=== PATIENT | female | born 1995 | race American Indian/Alaskan Native ===

== ENCOUNTER 2018-08-11 03:51 | Emergency (ER) | payer MEDICAID ==
[2018-08-11] MEDS ORDERED: BENADRYL IM ONE (05:32)
[2018-08-11] MEDS ORDERED: DECADRON IM ONE (05:32)
--- NOTE | 2018-08-11 05:36 | Emergency Department Report ---
ED Rash HPI - HPI Chief Complaint: Allergic Reaction Stated Complaint: ALLERGIC REACTION Time Seen by Provider: 08/11/18 05:31 Duration: Today Location: Neck, Chest, Back, Lower Extremities Rash Symptoms: Yes Itching, Yes Wheezing/Dyspnea, No Facial Swelling, No Tongue/ Oral Swelling, No Breathing Difficulties, No Choking Sensation, No Peeling, No Blistering, No Fever, No Lightheaded, No Malaise, No Myalgias Severity: mild Other History: 23-year-old 2 para 1 that is 5 months comes in she has broke out in a rash. Patient reports that she had eaten tacos when she eats all the time and had an almond Wanda about 9:30. Patient started itching and having whelps on her stomach her legs or arms abdomen. Patient reports shortness of breath and was having trouble swallowing. Patient has not taken anything to relieve her discomfort. She is followed by [facility] and is taking vitamins. No known drug allergies. ED Review of Systems ROS: Stated complaint: ALLERGIC REACTION Other details as noted in HPI Skin: rash ED Past Medical Hx - Past Medical History Previous Medical History?: No - Surgical History Past Surgical History?: No - Social History Smoking Status: Never Smoker Substance Use Type: None - Medications Home Medications: Home Medications Medication Instructions Recorded Confirmed Last Taken Type cephALEXin [Keflex] 500 mg PO Q6HR #20 capsule 07/09/18 Unknown Rx diphenhydrAMINE [Benadryl CAP] 25 mg PO Q6HR PRN #20 capsule 08/11/18 Unknown Rx Rash Exam - Exam General: Vital signs noted. No distress. Alert and acting appropriately. HEENT: No Periorbital Edema, No Conjuctival Injection, No Chemosis, No Perioral Edema, No Tongue Edema, No Uvular Edema, No Compromised Airway, No Drooling Lungs: Yes Good Air Exchange (Normal Breath Sounds), No Wheezes, No Ronchi, No Stridor, No Cough, No Labored Respirations, No Retractions, No Use of Accessory Muscles, No Other Abnormal Lung Sounds Heart: Yes Regular, No Murmur Skin: Yes Urticarial Rash Other: Positive: Abdomen Normal, Neurologic Normal, Musculoskeletal Normal ED Course Vital Signs 08/11/18 04:26 Temperature 98.4 F Pulse Rate 79 Respiratory 18 Rate Blood Pressure 107/52 O2 Sat by Pulse 99 Oximetry - Reevaluation(s) Reevaluation #1: 08/11/18 19:07 Reassessed by this provider patient required a nebulizer treatment patient reports she feels much better. ED Medical Decision Making - Medical Decision Making Patient has been evaluated by this provider fast track. Discussed with Dr. Hudson patient can have Decadron 8 mg grams IM and Benadryl 25 mg IM. Discussed the patient she needs to inform her OB provider and avoid eating almond Wanda. Critical care attestation.: If time is entered above; I have spent that time in minutes in the direct care of this critically ill patient, excluding procedure time. ED Disposition Clinical Impression: Urticaria Disposition: - TO HOME OR SELFCARE Is pt being admited?: No Does the pt Need Aspirin: No Condition: Stable Instructions: Urticaria (ED), Food Allergy (ED) Additional Instructions: Please take medication as prescribed. It is very important for you to follow up with your OB provider. They may want to do allergy testing if this becomes a reoccurrence. Prescriptions: diphenhydrAMINE [Benadryl CAP] 25 mg PO Q6HR PRN #20 capsule PRN Reason: Allergic Reaction Referrals: PRIMARY CARE, [Primary Care Provider] - 3-5 Days [facility] [Provider Group] - 3-5 Days
[2018-08-11] MEDS ORDERED: PROVENTIL IH ONE (06:25)
[2018-08-11 07:54] VITALS: BP 93/52
== END 2018-08-11 07:53 | disposition home or self-care (01) ==
LOC: ED 03:51
DX: O26.899 Other specified pregnancy related conditions, unspecified trimester (principal); L50.9 Urticaria, unspecified; Z3A.00 Weeks of gestation of pregnancy not specified
CPT/HCPCS: 94640; 96372; 99283; J1100; J1200

== ENCOUNTER 2018-11-12 21:54 | Emergency (ER) | payer MEDICAID, OTHER ==
[2018-11-12 23:44] LABS: Basophils # (Auto) 0.1 K/mm3 (0.0-0.1); Basophils % (Auto) 0.4 % (0.0-1.8); Eosinophils % (Auto) 0.2 % (0.0-4.3); Hematocrit 31.7 % (30.3-42.9); Hemoglobin 10.5 gm/dl (10.1-14.3); Lymphocytes # (Auto) 1.6 K/mm3 (1.2-5.4); Lymphocytes % (Auto) 13.8 % (13.4-35.0); Mean Corpuscular HGB Conc 33 % (30-34); Mean Corpuscular Volume 88 fl (79-97); Monocytes # (Auto) 0.7 K/mm3 (0.0-0.8); Monocytes % (Auto) 6.3 % (0.0-7.3); Platelet Count 217 K/mm3 (140-440); Red Cell Distribution Width 13.8 % (13.2-15.2)
[2018-11-12 23:57] LABS: Alanine Aminotransferase 42 units/L (7-56); Albumin 3.7 g/dL (3.9-5); BUN/Creatinine Ratio 18; Blood Urea Nitrogen 7 mg/dL (7-17); Calcium 8.7 mg/dL (8.4-10.2); Hemolysis Index 8
--- NOTE | 2018-11-13 01:04 | Emergency Department Report ---
ED General Adult HPI - General Chief complaint: High BP Stated complaint: HIGH BP Time Seen by Provider: 11/13/18 00:52 Source: patient Mode of arrival: Ambulatory Limitations: No Limitations - History of Present Illness Initial comments: Patient is a 23-year-old female presents emergency room with complaints of high blood pressure. Patient states in triage her blood pressure was normal. Patient states when checking her blood pressure at home and it was at 130/60. Patient is at 33 weeks. Patient has OB care with a local ELECTRICAL ENGINEERING TECHNICIAN. Patient denies chest pain shortness of breath. Patient denies headache. Patient denies physical complaints. Patient denies abdominal pain. Patient denies fever and chills. Patient denies vaginal bleeding. Patient denies vaginal discharge. -: Sudden Consistency: now resolved Associated Symptoms: denies other symptoms. denies: confusion, chest pain, cough, diaphoresis, fever/chills, headaches, loss of appetite, malaise, jin sea/vomiting, rash, seizure, shortness of breath, syncope, weakness Treatments Prior to Arrival: none - Related Data Previous Rx's Medication Instructions Recorded Last Taken Type cephALEXin [Keflex] 500 mg PO Q6HR #20 capsule 07/09/18 Unknown Rx diphenhydrAMINE [Benadryl CAP] 25 mg PO Q6HR PRN #20 capsule 08/11/18 Unknown Rx Allergies Allergy/AdvReac Type Severity Reaction Status Date / Time No Known Allergies Allergy Unverified 07/09/18 13:49 ED Review of Systems ROS: Stated complaint: HIGH BP Other details as noted in HPI Constitutional: denies: chills, fever Eyes: denies: eye pain, eye discharge, vision change ENT: denies: ear pain, throat pain Respiratory: denies: cough, shortness of breath, wheezing Cardiovascular: denies: chest pain, palpitations Endocrine: no symptoms reported Gastrointestinal: denies: abdominal pain, nausea, diarrhea Genitourinary: denies: urgency, dysuria, discharge Musculoskeletal: denies: back pain, joint swelling, arthralgia Skin: denies: rash, lesions Neurological: denies: headache, weakness, paresthesias Psychiatric: denies: anxiety, depression Hematological/Lymphatic: denies: easy bleeding, easy bruising ED Past Medical Hx - Past Medical History Previous Medical History?: Yes Additional medical history: induced for possible preeclampsia with last - Surgical History Past Surgical History?: Yes Additional Surgical History: - Family History Family history: no significant - Social History Smoking Status: Never Smoker Substance Use Type: None - Medications Home Medications: Home Medications Medication Instructions Recorded Confirmed Last Taken Type cephALEXin [Keflex] 500 mg PO Q6HR #20 capsule 07/09/18 Unknown Rx diphenhydrAMINE [Benadryl CAP] 25 mg PO Q6HR PRN #20 capsule 08/11/18 Unknown Rx ED Physical Exam - General Limitations: No Limitations General appearance: alert, in no apparent distress - Head Head exam: Present: atraumatic, normocephalic - Eye Eye exam: Present: normal appearance - ENT ENT exam: Present: mucous membranes moist - Neck Neck exam: Present: normal inspection - Respiratory Respiratory exam: Present: normal lung sounds bilaterally. Absent: respiratory distress - Cardiovascular Cardiovascular Exam: Present: regular rate, normal rhythm. Absent: systolic murmur, diastolic murmur, rubs, gallop - GI/Abdominal GI/Abdominal exam: Present: soft, distended (gravid abdomen noted), normal bowel sounds. Absent: tenderness, guarding, rebound, rigid - Extremities Exam Extremities exam: Present: normal inspection - Back Exam Back exam: Present: normal inspection - Neurological Exam Neurological exam: Present: alert, oriented X3 - Psychiatric Psychiatric exam: Present: normal affect, normal mood - Skin Skin exam: Present: warm, dry, intact, normal color. Absent: rash ED Course Vital Signs 11/12/18 11/12/18 11/13/18 22:29 22:48 01:10 Temperature 98.8 F 98.8 F 98.5 F Pulse Rate 112 H 112 H 86 Respiratory 20 20 18 Rate Blood Pressure 111/66 111/66 Blood Pressure 98/58 [Left] O2 Sat by Pulse 98 98 99 Oximetry - Reevaluation(s) Reevaluation #1: Blood pressure recheck is 99/58. Patient has no signs of high blood pressure. Patient is stable for discharge. Discussed all results with patient. Patient given discharge instructions. Patient to return to ER structures. 11/13/18 01:02 ED Medical Decision Making - Lab Data Result diagrams: 11/12/18 23:20 11/12/18 23:20 - Medical Decision Making She is a 23-year-old female that presents emergency room with complaints of high blood pressure. Labs unremarkable. Blood pressure unremarkable in ER. Patient is stable for discharge. Patient will be discharged home. Patient instructed to follow up with her primary care and ELECTRICAL ENGINEERING TECHNICIAN. - Differential Diagnosis high blood pressure. Incorrect reading. Elevated blood pressure Critical care attestation.: If time is entered above; I have spent that time in minutes in the direct care of this critically ill patient, excluding procedure time. ED Disposition Clinical Impression: Elevated blood pressure reading, Hypokalemia Disposition: TO HOME OR SELFCARE Is pt being admited?: No Does the pt Need Aspirin: No Condition: Stable Instructions: Heart Healthy Diet (ED), How to Take a Blood Pressure (ED), DASH Eating Plan (ED) Additional Instructions: Patient to follow-up with primary care in 2-3 days. Patient to follow-up with ELECTRICAL ENGINEERING TECHNICIAN in 2-3 days. Patient to return to ER if condition worsens. Patient to increase water. Patient to monitor blood pressure at home. Patient to continue vitamin. Referrals: PRIMARY CAREMD [Primary Care Provider] - 2-3 Days Time of Disposition: 01:04
[2018-11-13 01:18] VITALS: BP 98/58
== END 2018-11-13 01:18 | disposition home or self-care (01) ==
LOC: ED 21:54
DX: O26.893 Other specified pregnancy related conditions, third trimester (principal); R03.0 Elevated blood-pressure reading, without diagnosis of hypertension; E87.6 Hypokalemia; Z3A.33 33 weeks gestation of pregnancy
CPT/HCPCS: 36415; 80053; 85025; 99283

== ENCOUNTER 2018-12-11 01:35 | Inpatient (IN) | payer MEDICAID ==
[2018-12-11] MEDS ORDERED: MINERAL OIL PO PRN (02:30)
[2018-12-11] MEDS ORDERED: BRETHINE SUB-Q PRN (02:30)
[2018-12-11] MEDS ORDERED: BRETHINE IVP PRN (02:30)
[2018-12-11] MEDS ORDERED: XYLOCAINE 2% INFILTRATI ONE (02:30)
[2018-12-11] MEDS ORDERED: AMPICILLIN/NS 2 GM/100 ML 2 GM/100 ML BAG IV ONE (02:30)
[2018-12-11] MEDS ORDERED: SUBLIMAZE IV PRN (02:30)
[2018-12-11] MEDS ORDERED: PITOCin/NS 20 UNIT/1000ML DRIP 20 UNITS/1,000 ML BAG IV SCH (03:00)
[2018-12-11] MEDS ORDERED: LACTATED RINGERS 1,000 ML IV SCH (03:00)
[2018-12-11 03:02] LABS: Hematocrit 32.6 % (30.3-42.9); Hemoglobin 10.4 gm/dl (10.1-14.3); Mean Corpuscular HGB Conc 32 % (30-34); Mean Corpuscular Volume 89 fl (79-97); Platelet Count 189 K/mm3 (140-440); Red Blood Count 3.66 M/mm3 (3.65-5.03); Red Cell Distribution Width 14.9 % (13.2-15.2)
[2018-12-11] MEDS ORDERED: NARCAN 2 MG/2 ML IV PRN (05:16)
[2018-12-11] MEDS ORDERED: SENSORCAINE/DEXTR 0.75-8.25% INFILTRATI ONE (05:22)
[2018-12-11] MEDS ORDERED: fentaNYL-BUPIV 2 MCG/ML-0.125% 200 MCG/100 ML BAG EPIDURAL SCH (06:00)
[2018-12-11] MEDS ORDERED: AMPICILLIN/NS 1 GM/50 ML 1 GM/50 ML BAG IV SCH (06:31)
[2018-12-11] MEDS ORDERED: PITOCin/NS 30 UNIT/500ML 30 UNITS/500 ML BAG IV SCH (08:00)
--- NOTE | 2018-12-11 08:20 | History and Physical Report ---
History of Present Illness Date of examination: 12/11/18 Date of admission: 12/11/18 03:04 Chief complaint: contractions History of present illness: 23y/o @ 37+0 weeks presents in active labor with advanced cervical dilation. The patient is late presentation to care and was non-compliant with her visits. Her is also complicated STD exposure. 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 Social history: single - Obstetrical History Expected Date of Delivery: 01/01/19 Actual Gestation: 37 Week(s) 1 Day(s) : 2 Para: 1 Hx # Term Pregnancies: 1 Number of Pregnancies: 0 Spontaneous Abortions: 0 Induced : 0 Number of Living Children: 1 Medications and Allergies Allergies Allergy/AdvReac Type Severity Reaction Status Date / Time No Known Allergies Allergy Verified 12/11/18 01:57 Home Medications Medication Instructions Recorded Confirmed Last Taken Type Ferrous Sulfate [Iron] 1 tab PO BID 12/11/18 12/11/18 12/10/18 History Vit,Calc76/Iron/Folic 1 tab PO DAILY 12/11/18 12/11/18 12/10/18 History [Pnv 29-1 Tablet] HYDROcodone/APAP 5-325 [Whitman 1 each PO Q6HR PRN #20 tablet 12/12/18 Unknown Rx 5/325] Ibuprofen [Motrin] 800 mg PO Q8HR PRN #60 tablet 12/12/18 Unknown Rx Active Meds: Active Medications Ephedrine Sulfate (Ephedrine Sulfate) 10 mg IV Q2M PRN PRN Reason: Hypotension Last Admin: 12/11/18 05:46 Dose: 10 mg Documented by: Ephedrine Sulfate (Ephedrine Sulfate) 10 mg IV Q2M PRN PRN Reason: Hypotension Fentanyl (Sublimaze) 100 mcg IV Q2H PRN PRN Reason: Labor Pain Ampicillin Sodium (Ampicillin/Ns 1 Gm/50 Ml) 1 gm in 50 mls @ 100 mls/hr IV Q4HR AISHA; Protocol Last Admin: 12/11/18 07:33 Dose: 100 mls/hr Documented by: Lactated Ringer's (Lactated Ringers) 1,000 mls @ 125 mls/hr IV DIRECT AISHA Last Admin: 12/11/18 03:30 Dose: 125 mls/hr Documented by: Oxytocin/Sodium Chloride (Pitocin/Ns 20 Unit/1000ml Drip) 20 units in 1,000 mls @ 125 mls/hr IV DIRECT AISHA Fentanyl/Bupivacaine/Sodium Chlor (Fentanyl-Bupiv 2 Mcg/Ml-0.125%) 200 mcg in 100 mls @ 12 mls/hr EPIDURAL TITR AISHA; Protocol Last Admin: 12/11/18 06:05 Dose: 12 mls/hr Documented by: Oxytocin/Sodium Chloride (Pitocin/Ns 30 Unit/500ml) 30 units in 500 mls @ 1 mls/hr IV TITR AISHA; Protocol Mineral Oil (Mineral Oil) 30 ml PO QHS PRN PRN Reason: Constipation Naloxone HCl (Narcan 2 Mg/2 Ml) 0.2 mg IV Q5M PRN PRN Reason: Respiratory sedation Terbutaline Sulfate (Brethine) 0.25 mg SUB-Q ONCE PRN PRN Reason: Hyperstimulation/Hypertonicity Terbutaline Sulfate (Brethine) 0.25 mg IVP ONCE PRN PRN Reason: Hyperstimulation/Hypertonicity Review of Systems All systems: negative Genitourinary: contractions - Vital Signs Vital signs: Vital Signs Pulse BP 100 H 102/58 12/11/18 01:46 12/11/18 01:46 Temp Pulse Resp BP Pulse Ox 97.8 F 88 16 91/50 97 12/11/18 01:47 12/11/18 08:11 12/11/18 01:47 12/11/18 08:11 12/11/18 07:03 - Physical Exam Breasts: Positive: deferred Cardiovascular: Regular rate Lungs: Positive: Clear to auscultation Abdomen: Positive: normal appearance Results Result Diagrams: 12/11/18 22:28 All other labs normal. Assessment and Plan - Patient Problems (1) Insufficient care Current Visit: Yes Status: Acute Plan to address problem: patient doing well discharge tomorrow (2) Active labor Current Visit: Yes Status: Acute
[2018-12-11] MEDS ORDERED: ZOFRAN IV PRN ×2 (08:43→11:28)
[2018-12-11] MEDS ORDERED: PHENERGAN PO PRN (11:28)
[2018-12-11] MEDS ORDERED: TYLENOL PO PRN (11:28)
[2018-12-11] MEDS ORDERED: LANSINOH TP PRN (11:28)
[2018-12-11] MEDS ORDERED: TUCKS PAD TP PRN (11:28)
[2018-12-11] MEDS ORDERED: DULCOLAX PR PRN (11:28)
[2018-12-11] MEDS ORDERED: PHENERGAN PR PRN (11:28)
[2018-12-11] MEDS ORDERED: NORCO 5/325 PO PRN (11:28)
[2018-12-11] MEDS ORDERED: BENADRYL PO PRN (11:28)
[2018-12-11] MEDS ORDERED: MILK OF MAGNESIA PO PRN (11:28)
--- NOTE | 2018-12-11 11:28 | Procedure Note ---
OB Delivery Note - Delivery Date of Delivery: 12/11/18 Surgeon: KAREEN FRANCIS Estimated blood loss: 200cc - Vaginal Delivery presentation: vertex Delivery position: OA Intrapartum events: none Delivery induction: AROM Delivery augmentation: pitocin Delivery monitor: external FHT Route of delivery: Delivery placenta: spontaneous Delivery cord: 3 umbilical vessels Episiotomy: none Delivery laceration: 2nd degree Delivery repair: vicryl Anesthesia: epidural Delivery comments: Patient progressed to C/C/+1 and pushed to deliver a liveborn female with apgars of 8/9 and weight of 6lbs 0oz. After delivery of the head the shoulders delivered without difficulty. The infant was bulb suction and the cord clamped and cut. The infant was placed on the patient's chest. The placenta delivered spontaneously intact with 3VC. The patient sustained a midline 2nd degree laceration repaired with 2-0 vicryl. EBL 200ml - A at 1 minute: 8 at 5 minutes: 9 Infant Gender: Female (weight 6lbs 0oz.)
[2018-12-11] MEDS ORDERED: SODIUM CHLORIDE FLUSH SYRINGE 10 ML IV SCH (12:00)
[2018-12-11] MEDS ORDERED: IBUPROFEN PO SCH (12:00)
[2018-12-11 22:52] LABS: Hematocrit 26.4 % (30.3-42.9); Hemoglobin 8.7 gm/dl (10.1-14.3)
[2018-12-12] MEDS: IBUPROFEN PO SCH ×4 (00:07→19:19)
--- NOTE | 2018-12-12 13:12 | Discharge Summary ---
Providers - Providers Date of Admission: 12/11/18 03:04 Date of discharge: 12/13/18 Attending physician: EFRA MENDOZA MD Primary care physician: [facility] Hospitalization Reason for admission: active labor Delivery: Discharge diagnosis: IUP at term delivered Hospital course: Patient admitted in active labor. Had a . uncomplicated Condition at discharge: Good Disposition: DC-01 TO HOME OR SELFCARE - Discharge Diagnoses (1) Insufficient care Status: Acute (2) Active labor Status: Acute Plan - Discharge Medications Prescriptions: HYDROcodone/APAP 5-325 [Erin 5/325] 1 each PO Q6HR PRN #20 tablet PRN Reason: Pain Ibuprofen [Motrin] 800 mg PO Q8HR PRN #60 tablet PRN Reason: Pain, Mild (1-3) - Provider Discharge Summary Activity: no sex for 6 weeks, no heavy lifting 4 weeks, no strenuous exercise Diet: routine Instructions: routine Additional instructions: [] Smoking cessation referral if applicable(refer to patient education folder for contact #) [] Refer to [facility] Booklet Call your doctor immediately for: * Fever > 100.5 * Heavy vaginal bleeding ( >1 pad per hour) * Severe persistent headache * Shortness of breath * Reddened, hot, painful area to leg or breast * schedule visit in 4 weeks - Follow up plan
[2018-12-13] MEDS: IBUPROFEN PO SCH ×2 (00:10→05:36)
[2018-12-13 08:13] VITALS: BP 96/55
== END 2018-12-13 12:40 | disposition home or self-care (01) | DRG 775 ==
LOC: TRG 01:35 → LD 03:04 → OB 13:45
PROVIDERS: ADMIT Obstetrics & Gynecology; ATTEND Obstetrics & Gynecology
PROC: 0KQM0ZZ Repair Perineum Muscle, Open Approach (ICD-10-PCS; principal; 2018-12-11)
PROC: 10907ZC Drainage of Amniotic Fluid, Therapeutic from Products of Conception, Via Natural or Artificial Opening (ICD-10-PCS; 2018-12-11)
PROC: 10E0XZZ Delivery of Products of Conception, External Approach (ICD-10-PCS; 2018-12-11)
PROC: 3E0R3BZ Introduction of Anesthetic Agent into Spinal Canal, Percutaneous Approach (ICD-10-PCS; 2018-12-11)
PROC: 00HU33Z Insertion of Infusion Device into Spinal Canal, Percutaneous Approach (ICD-10-PCS; 2018-12-11)
DX: O70.1 Second degree perineal laceration during delivery (principal); Z37.0 Single live birth; Z3A.37 37 weeks gestation of pregnancy
CPT/HCPCS: 36415; 85014; 85018; 85027; 86592; 86850; 86900; 86901; G0378; J0290; J2405; J2590; J3010; J7120

== ENCOUNTER 2019-01-28 15:00 | Emergency (ER) | payer MEDICAID ==
--- NOTE | 2019-01-28 15:23 | Emergency Department Report ---
Blank Doc - Documentation Documentation: This is a 23-year-old female that presents with acute on chronic intermittent migrane headaches. Denies worst headache. Denies thunderclap headache. Stated is similar headache to previous headaches. This initial assessment/diagnostic orders/clinical plan/treatment(s) is/are subject to change based on patient's health status, clinical progression and re- assessment by fellow clinical providers in the ED. Further treatment and workup at subsequent clinical providers discretion. Patient/guardians urged not to elope from the ED as their condition may be serious if not clinically assessed and managed. Initial orders include: 1- Patient sent to [facility] for further evaluation and treatment
[2019-01-28] MEDS ORDERED: REGLAN PO ONE (17:26)
[2019-01-28] MEDS ORDERED: BENADRYL PO ONE (17:26)
--- NOTE | 2019-01-28 17:44 | Emergency Department Report ---
ED Headache HPI - General Chief Complaint: Headache Stated Complaint: MIGRANES/PAIN Time Seen by Provider: 01/28/19 15:22 - History of Present Illness Initial Comments: Pt is a 23 yo female who presents to the ED with c/o a frontal MORAN that began three days ago. She has associated nausea, one episode of emesis, photophobia, and occasional flashes of blurry vision. no blurry vision currently. She denies any numbness, weakness, speech difficulty or any other sx. She denies ever being diagnosed with migraines. She denies ever having a CT scan of the brain. She states she has been taking tylenol and ibuprofen without much relief. SHe denies any PMHx. She states she only takes vitamins. Allergies/Adverse Reactions: Allergies No Known Allergies Allergy (Verified 12/11/18 01:57) Home Medications: Ambulatory Orders Ferrous Sulfate [Iron 325 MG] 1 tab PO BID 12/11/18 Ibuprofen [Motrin 800 MG tab] 800 mg PO Q8HR PRN #60 tablet 01/28/19 Ondansetron [Zofran Odt] 4 mg PO Q8HR PRN #10 tab.rapdis 01/28/19 ED Review of Systems ROS: Stated complaint: MIGRANES/PAIN Other details as noted in HPI Comment: All other systems reviewed and negative ED Past Medical Hx - Past Medical History Hx Hypertension: Yes (gestational w/first ) Hx Congestive Heart Failure: No Hx Diabetes: No Hx Deep Vein Thrombosis: No Hx Renal Disease: No Hx Sickle Cell Disease: No Hx Seizures: No Hx Asthma: No Hx COPD: No Hx HIV: No Additional medical history: induced for possible preeclampsia with last - Surgical History Past Surgical History?: Yes Additional Surgical History: - Social History Smoking Status: Never Smoker Substance Use Type: None - Medications Home Medications: Home Medications Medication Instructions Recorded Confirmed Last Taken Type Ferrous Sulfate [Iron 325 MG] 1 tab PO BID 12/11/18 12/11/18 12/10/18 History Ibuprofen [Motrin 800 MG tab] 800 mg PO Q8HR PRN #60 tablet 01/28/19 Unknown Rx Ondansetron [Zofran Odt] 4 mg PO Q8HR PRN #10 tab.rapdis 01/28/19 Unknown Rx ED Physical Exam - General Limitations: No Limitations General appearance: alert, in no apparent distress - Head Head exam: Present: atraumatic, normocephalic - Eye Eye exam: Present: normal appearance, PERRL, EOMI - ENT ENT exam: Present: mucous membranes moist - Neck Neck exam: Present: normal inspection. Absent: tenderness, meningismus - Respiratory Respiratory exam: Present: normal lung sounds bilaterally. Absent: respiratory distress, wheezes, rales, rhonchi, stridor, chest wall tenderness, accessory m uscle use, decreased breath sounds, prolonged expiratory - Cardiovascular Cardiovascular Exam: Present: regular rate, normal rhythm, normal heart sounds. Absent: systolic murmur, rubs, gallop - Neurological Exam Neurological exam: Present: alert, oriented X3, CN II-XII intact, normal gait, other (normal finger to nose, normal heel to michelle, normal rapid alternating movements, equal medical assisting instructor strength, 5/5 strength in the BUE/BLE, no focal neuro deficits). Absent: motor sensory deficit - Psychiatric Psychiatric exam: Present: normal affect, normal mood - Skin Skin exam: Present: warm, dry, intact ED Course Vital Signs 01/28/19 01/28/19 01/28/19 15:23 17:50 18:10 Temperature 98 F Pulse Rate 95 H Respiratory 18 18 Rate Blood Pressure 103/53 Blood Pressure [Left] O2 Sat by Pulse 98 Oximetry 01/28/19 18:52 Temperature 97.7 F Pulse Rate 82 Respiratory 15 Rate Blood Pressure Blood Pressure 108/64 [Left] O2 Sat by Pulse 98 Oximetry ED Medical Decision Making - Radiology Data Radiology results: report reviewed PROCEDURE: CT HEAD/BRAIN WO CON TECHNIQUE: Axial helical imaging from the skull base to the vertex. HISTORY: MORAN, blurry vision COMPARISONS: None FINDINGS: There is no evidence of an acute intracranial process, intracranial hemorrhage or mass effect. The ventricles are normal size. The visualized portions of the orbits, paranasal and mastoid sinuses are unremarkable. The bony structures are unremarkable. IMPRESSION: 1. No evidence of an acute intracranial process, intracranial hemorrhage or mass effect. If further imaging is required, MRI brain may be helpful. This document is electronically signed by Lizzie Medina MD., January 28 2019 06:34:08 PM ET - Medical Decision Making Pt is a 23 yo female who presents to the ED with c/o a frontal MORAN that began three days ago. She has associated nausea, one episode of emesis, photophobia, and occasional flashes of blurry vision. no blurry vision currently. She denies any numbness, weakness, speech difficulty or any other sx. She denies ever being diagnosed with migraines. She denies ever having a CT scan of the brain. She states she has been taking tylenol and ibuprofen without much relief. SHe denies any PMHx. She states she only takes vitamins. No neuro deficits. CT of the head is normal. Headache resolved after medications. Advised pt to follow up with PCP and optometry in the next 2-3 days. Follow up with neurology if continue to have headaches for migraine evaluation. Return to the emergency room for any new or worsening symptoms. - Differential Diagnosis migraine, cluster moran, tension morna, tumor, bleed Critical care attestation.: If time is entered above; I have spent that time in minutes in the direct care of this critically ill patient, excluding procedure time. ED Disposition Clinical Impression: Headache Qualifiers: Headache type: unspecified Headache chronicity pattern: acute headache Intractability: not intractable Qualified Code(s): R51 - Headache Disposition: DC-01 TO HOME OR SELFCARE Is pt being admited?: No Does the pt Need Aspirin: No Condition: Stable Instructions: Migraine Headache (ED) Additional Instructions: Follow up with your primary care doctor in the next 2-3 days. Follow up with neurology in the next 2-3 days if continue to have headaches. Follow up with an eye doctor to have your vision checked in the next 2-3 days. Return to the emergency room for any new or worsening symptoms. Prescriptions: Ibuprofen [Motrin 800 MG tab] 800 mg PO Q8HR PRN #60 tablet PRN Reason: Pain, Mild (1-3) Ondansetron [Zofran Odt] 4 mg PO Q8HR PRN #10 tab.rapdis PRN Reason: Nausea And Vomiting Referrals: VALENTINO BERMAN MD [Primary Care Provider] - 2-3 Days PENNIE TRIPP MD [Staff Physician] - 2-3 Days Time of Disposition: 18:45 Print Language: CROATIAN
[2019-01-28] MEDS ORDERED: TORADOL PO ONE (18:00)
[2019-01-28] MEDS ORDERED: TORADOL IM ONE (18:07)
[2019-01-28] MEDS ORDERED: TORADOL ONE (18:08)
--- NOTE | 2019-01-28 18:36 | Cat Scan Report ---
PROCEDURE: CT HEAD/BRAIN WO CON TECHNIQUE: Axial helical imaging from the skull base to the vertex. HISTORY: MORAN, blurry vision COMPARISONS: None FINDINGS: There is no evidence of an acute intracranial process, intracranial hemorrhage or mass effect. The ventricles are normal size. The visualized portions of the orbits, paranasal and mastoid sinuses are unremarkable. The bony structures are unremarkable. IMPRESSION: 1. No evidence of an acute intracranial process, intracranial hemorrhage or mass effect. If further imaging is required, MRI brain may be helpful. This document is electronically signed by Lizzie Medina MD., January 28 2019 06:34:08 PM ET
[2019-01-28 18:55] VITALS: BP 108/64
== END 2019-01-28 18:52 | disposition home or self-care (01) ==
LOC: ED 15:00
DX: R51 Headache (principal); R11.2 Nausea with vomiting, unspecified; H53.8 Other visual disturbances; I10 Essential (primary) hypertension
CPT/HCPCS: 70450; 96372; 99283; J1885

== ENCOUNTER 2019-06-07 19:51 | Emergency (ER) | payer MEDICAID ==
--- NOTE | 2019-06-07 20:36 | Event Note ---
ED Screening Note Date of service: 06/07/19 Time: 20:34 ED Screening Note: 24 y/o female comes in for abd pain with n/v. LMP 05/24/19. . This initial assessment/diagnostic orders/clinical plan/treatment(s) is/are subject to change based on patients health status, clinical progression and re- assessment by fellow clinical providers in the ED. Further treatment and workup at subsequent clinical providers discretion. Patient/guardian urged not to elope from the ED as their condition may be serious if not clinically assessed and managed. Initial orders include:
[2019-06-07 21:06] LABS: Basophils # (Auto) 0.1 K/mm3 (0.0-0.1); Basophils % (Auto) 0.6 % (0.0-1.8); Eosinophils # (Auto) 0.1 K/mm3 (0.0-0.4); Eosinophils % (Auto) 0.6 % (0.0-4.3); Hematocrit 36.2 % (30.3-42.9); Lymphocytes # (Auto) 2.1 K/mm3 (1.2-5.4); Lymphocytes % (Auto) 20.7 % (13.4-35.0); Mean Corpuscular HGB Conc 33 % (30-34); Mean Corpuscular Volume 90 fl (79-97); Monocytes # (Auto) 0.5 K/mm3 (0.0-0.8); Monocytes % (Auto) 5.3 % (0.0-7.3); Platelet Count 226 K/mm3 (140-440); Red Blood Count 4.02 M/mm3 (3.65-5.03); Red Cell Distribution Width 14.8 % (13.2-15.2)
[2019-06-07 21:28] LABS: Alanine Aminotransferase 7 units/L (7-56); Albumin 4.4 g/dL (3.9-5); BUN/Creatinine Ratio 13; Blood Urea Nitrogen 12 mg/dL (7-17); Calcium 9.2 mg/dL (8.4-10.2); Hemolysis Index 7
[2019-06-07 21:29] LABS: Bilirubin,Urine NEG (Negative); Blood,Urine NEG (Negative); Color,Urine Yellow (Yellow); Mucus,Urine FEW /HPF; Protein,Urine <15 mg/dL mg/dL (Negative)
[2019-06-07] MEDS ORDERED: ZOFRAN IV ONE (23:27)
[2019-06-07] MEDS ORDERED: NACL 0.9% 1000 ML 1,000 ML IV ONE (23:27)
[2019-06-07] MEDS ORDERED: MORPHINE IV ONE (23:27)
[2019-06-08] MEDS ORDERED: DECADRON IV ONE (00:28)
[2019-06-08] MEDS ORDERED: BENADRYL IV ONE (00:28)
[2019-06-08] MEDS ORDERED: BENADRYL ONE (00:31)
[2019-06-08] MEDS ORDERED: DECADRON ONE (00:31)
--- NOTE | 2019-06-08 01:35 | Emergency Department Report ---
ED Abdominal Pain HPI - General Chief Complaint: Abdominal Pain Stated Complaint: ABDOMINAL PAIN/VOMITING Time Seen by Provider: 06/07/19 20:34 Source: patient Mode of arrival: Ambulatory Limitations: No Limitations - History of Present Illness Initial Comments: This is a 24-year-old female nontoxic, well nourished in appearance, no acute signs of distress presents to the ED with c/o of nausea and vomiting and abdominal pain 1 day. Patient describes vomiting as food content and yellow gastric acid. Patient describes abdominal pain as cramping and aching with level of 3/10 diffuse. Patient denies chest pain, short of breath, fever, chills, headache, stiff neck, numbness or tingling. Patient denies any diarrhea or constipation. Patient denies any recent travels. Patient denies any allergies or significant PMH. MD Complaint: abdominal pain -: Last night Location: diffuse Radiation: none Migration to: no migration Severity: mild Severity scale (0 -10): 3 Quality: cramping, aching Consistency: constant Improves With: nothing Worsens With: nothing Associated Symptoms: nausea, vomiting. denies: diarrhea, fever, chills, constipation, dysuria, hematemesis, hematochezia, melena, hematuria, anorexia, syncope - Related Data Home Medications Medication Instructions Recorded Confirmed Last Taken Ferrous Sulfate [Iron 325 MG] 1 tab PO BID 12/11/18 12/11/18 12/10/18 Previous Rx's Medication Instructions Recorded Last Taken Type Ibuprofen [Motrin 800 MG tab] 800 mg PO Q8HR PRN #60 tablet 01/28/19 Unknown Rx Ondansetron [Zofran Odt] 4 mg PO Q8HR PRN #10 tab.rapdis 01/28/19 Unknown Rx Acetaminophen/Codeine [Tylenol 1 tab PO Q6H PRN #12 tab 06/08/19 Unknown Rx /Codeine # 3 tab] Ondansetron [Zofran Odt] 4 mg PO Q8HR PRN #20 tab.rapdis 06/08/19 Unknown Rx Allergies Allergy/AdvReac Type Severity Reaction Status Date / Time No Known Allergies Allergy Verified 12/11/18 01:57 ED Review of Systems ROS: Stated complaint: ABDOMINAL PAIN/VOMITING Other details as noted in HPI Constitutional: denies: chills, fever Eyes: denies: eye pain, eye discharge, vision change ENT: denies: ear pain, throat pain Respiratory: denies: cough, shortness of breath, wheezing Cardiovascular: denies: chest pain, palpitations Endocrine: no symptoms reported Gastrointestinal: abdominal pain, nausea, vomiting. denies: diarrhea Genitourinary: denies: urgency, dysuria, discharge Musculoskeletal: denies: back pain, joint swelling, arthralgia Skin: denies: rash, lesions Neurological: denies: headache, weakness, paresthesias Psychiatric: denies: anxiety, depression Hematological/Lymphatic: denies: easy bleeding, easy bruising ED Past Medical Hx - Past Medical History Previous Medical History?: Yes Hx Hypertension: Yes (gestational w/first ) Hx Congestive Heart Failure: No Hx Diabetes: No Hx Deep Vein Thrombosis: No Hx Renal Disease: No Hx Sickle Cell Disease: No Hx Seizures: No Hx Asthma: No Hx COPD: No Hx HIV: No Additional medical history: induced for possible preeclampsia with last - Surgical History Past Surgical History?: No Additional Surgical History: - Social History Smoking Status: Never Smoker Substance Use Type: None - Medications Home Medications: Home Medications Medication Instructions Recorded Confirmed Last Taken Type Ferrous Sulfate [Iron 325 MG] 1 tab PO BID 12/11/18 12/11/18 12/10/18 History Ibuprofen [Motrin 800 MG tab] 800 mg PO Q8HR PRN #60 tablet 01/28/19 Unknown Rx Ondansetron [Zofran Odt] 4 mg PO Q8HR PRN #10 tab.rapdis 01/28/19 Unknown Rx Acetaminophen/Codeine [Tylenol 1 tab PO Q6H PRN #12 tab 06/08/19 Unknown Rx /Codeine # 3 tab] Ondansetron [Zofran Odt] 4 mg PO Q8HR PRN #20 tab.rapdis 06/08/19 Unknown Rx ED Physical Exam - General Limitations: No Limitations General appearance: alert, in no apparent distress - Head Head exam: Present: atraumatic, normocephalic - Neck Neck exam: Present: normal inspection, full ROM. Absent: tenderness, meningismus, lymphadenopathy - Respiratory Respiratory exam: Present: normal lung sounds bilaterally. Absent: respiratory distress, wheezes, rales, rhonchi, stridor, chest wall tenderness, accessory muscle use, decreased breath sounds, prolonged expiratory - Cardiovascular Cardiovascular Exam: Present: regular rate, normal rhythm, normal heart sounds. Absent: bradycardia, tachycardia, irregular rhythm, systolic murmur, diastolic murmur, rubs, gallop - GI/Abdominal GI/Abdominal exam: Present: soft, tenderness (diffuse), normal bowel sounds. Absent: distended, guarding, rebound, rigid, diminished bowel sounds - Expanded GI/Abdominal Exam Expanded GI/Abdominal exam: Absent: psoas sign, Mancera's sign, Rovsing's sign, tenderness at Mcburney's Point, ascites - Extremities Exam Extremities exam: Present: normal inspection, full ROM - Back Exam Back exam: Present: normal inspection, full ROM. Absent: tenderness, CVA tenderness (R), CVA tenderness (L), muscle spasm, paraspinal tenderness, vertebral tenderness, rash noted - Neurological Exam Neurological exam: Present: alert, oriented X3, normal gait - Psychiatric Psychiatric exam: Present: normal affect, normal mood - Skin Skin exam: Present: warm, dry, intact, normal color. Absent: rash ED Course Vital Signs 06/07/19 06/08/19 20:34 02:28 Temperature 98.4 F 98.4 F Pulse Rate 70 63 Respiratory 18 16 Rate Blood Pressure 98/58 Blood Pressure 116/70 [Left] O2 Sat by Pulse 100 100 Oximetry - Reevaluation(s) Reevaluation #1: 06/08/19 01:33 Patient is speaking in full sentences with no signs of distress noted. ED Medical Decision Making - Lab Data Result diagrams: 06/07/19 20:47 06/07/19 20:47 - Medical Decision Making This is a 24-year-old female that presents with abdominal pain. Patient is stable and was examined by me. There is no abdominal tenderness. Negative signs of symptoms of appendicitis. Labs obtained. UA obtained. CT of abdomen obtained and dictated by the radiologist with impression of possible PID. Patient received Rocephin and azithromycin in the ED. Patient is notified of the report with no questions noted by the patient. Vital signs are stable prior to dischar ge. Patient received medical treatment in the ED which patient stated symptoms has resovled and subsided. Patient stated that she started to have itching after morphine was given as this was her first time. I believe patient Benadryl and Decadron which resolved. No Angioedema or rash present. Was instructed note to operate any machinery due to possible drowsiness and stated someone will drive the patient home. A by mouth challenge has been obtained and patient tolerated well with no nausea vomiting. Patient was also instructed to Follow- up with a primary care doctor in 3-5 days or if symptoms worsen and continue return to emergency room as soon as possible. At time of discharge, the patient does not seem toxic or ill in appearance. No acute signs of distress noted. Patient agrees to discharge treatment plan of care. No further questions noted by the patient. Critical care attestation.: If time is entered above; I have spent that time in minutes in the direct care of this critically ill patient, excluding procedure time. ED Disposition Clinical Impression: Abdominal pain Qualifiers: Abdominal location: generalized Qualified Code(s): R10.84 - Generalized abdominal pain Nausea & vomiting Qualifiers: Vomiting type: unspecified Vomiting Intractability: non-intractable Qualified Code(s): R11.2 - Nausea with vomiting, unspecified Disposition: DC-01 TO HOME OR SELFCARE Is pt being admited?: No Does the pt Need Aspirin: No Condition: Stable Instructions: Acute Nausea and Vomiting (ED), Abdominal Pain (ED) Additional Instructions: Follow-up with a primary care doctor in 3-5 days or if symptoms worsen and continue return to emergency room as soon as possible. Prescriptions: Acetaminophen/Codeine [Tylenol /Codeine # 3 tab] 1 tab PO Q6H PRN #12 tab PRN Reason: Pain , Severe (7-10) Ondansetron [Zofran Odt] 4 mg PO Q8HR PRN #20 tab.rapdis PRN Reason: Nausea Referrals: VALENTINO BERMAN MD [Primary Care Provider] - 3-5 Days PRIMARY CAREMD [Referring] - 3-5 Days ZENA GUILLEN MD [Staff Physician] - 3-5 Days [facility] [Outside] - 3-5 Days [facility] [Outside] - 3-5 Days Forms: Work/School Release Form(ED)
--- NOTE | 2019-06-08 02:10 | Cat Scan Report ---
. CT of the abdomen and pelvis with contrast INDICATION: Abdominal pain with nausea and vomiting COMPARISON: None FINDINGS: Lung bases are clear. The liver, spleen, pancreas, adrenal glands and kidneys all appear no rmal. No definite gallbladder or biliary tree abnormality. No fluid or adenopathy in the upper abdome n. CT of the pelvis shows a normal appendix. No diverticulosis or diverticulitis. There are several cyst ic structures in both adnexa and tubular fluid-filled areas as well with a moderate amount of free pe lvic fluid. No bowel obstruction is seen. No colitis or enteritis. IMPRESSION: Pelvic findings suggest pelvic inflammatory disease. No appendicitis or upper abdominal a bnormality. Automated exposure control was utilized to diminish radiation dose. Signer Name: Stevie Looney MD Signed: 06/08/2019 2:06 AM Workstation Name: [id number]
[2019-06-08 02:29] VITALS: BP 116/70
[2019-06-08] MEDS ORDERED: XYLOCAINE 1% MPF 5 mL INFILTRATI ONE (02:30)
[2019-06-08] MEDS ORDERED: ZITHROMAX PO ONE (02:30)
[2019-06-08] MEDS ORDERED: ROCEPHIN IM ONE (02:30)
== END 2019-06-08 03:15 | disposition home or self-care (01) ==
LOC: ED 19:51
DX: O26.891 Other specified pregnancy related conditions, first trimester (principal); R10.9 Unspecified abdominal pain; O21.9 Vomiting of pregnancy, unspecified; O13.1 Gestational [pregnancy-induced] hypertension without significant proteinuria, first trimester; Z79.899 Other long term (current) drug therapy; Z3A.01 Less than 8 weeks gestation of pregnancy
CPT/HCPCS: 36415; 74177; 80053; 81001; 83690; 84702; 85025; 96361; 96372; 96374; 96375; 99284; J0696; J1100; J1200; J2270; J2405; J7030; Q9967

== ENCOUNTER 2020-12-20 19:30 | Emergency (ER) | payer MEDICAID ==
[2020-12-20 20:15] VITALS: BP 116/72
[2020-12-20] MEDS ORDERED: TETRACAINE 0.5% OPHTH SOLN 4ML OU ONE (20:20)
[2020-12-20] MEDS ORDERED: BALANCED SALT IRRIG (BSS) OPHTH SOLN 15 ML OU ONE (20:20)
[2020-12-20] MEDS ORDERED: IBUPROFEN 600 MG TAB PO ONE (20:20)
[2020-12-20] MEDS ORDERED: FLUORESCEIN 1 MG STRIP OP ONE (20:20)
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
== END 2020-12-20 21:55 | disposition home or self-care (01) ==
LOC: ED 19:30
DX: S05.02XA Injury of conjunctiva and corneal abrasion without foreign body, left eye, initial encounter (principal); S05.01XA Injury of conjunctiva and corneal abrasion without foreign body, right eye, initial encounter; I10 Essential (primary) hypertension; Z98.890 Other specified postprocedural states; Z79.1 Long term (current) use of non-steroidal anti-inflammatories (NSAID); Z79.899 Other long term (current) drug therapy; X58.XXXA Exposure to other specified factors, initial encounter; Y93.89 Activity, other specified; Y92.89 Other specified places as the place of occurrence of the external cause; Y99.8 Other external cause status
CPT/HCPCS: 99282

== ENCOUNTER 2021-09-14 18:07 | Emergency (ER) | payer MEDICAID ==
--- NOTE | 2021-09-14 19:37 | Emergency Department Report ---
<OLIVIA MANCUSO - Last Filed: 09/14/21 20:57> ED General Adult HPI - General Chief complaint: Abdominal Pain Stated complaint: POSS MISCARRIAGE Time Seen by Provider: 09/14/21 18:55 Source: patient Mode of arrival: Ambulatory Limitations: No Limitations - History of Present Illness Initial comments: 6-year-old -Romanian female patient presents with complaints of vaginal bleeding in starting yesterday. Patient states 2 days ago while at work she was hit in the stomach with a forklift arm. She states she had abdominal pain that worsened yesterday along with vaginal bleeding. Patient states she is bleeding very heavily and has gone through about 20 pads today. She denies any dizziness. She rates her abdominal pain is 8/10 in severity. No other past medical history per patient. She is G3, . Patient states her first [employer] appointment was scheduled for 09/22/2021 - Related Data Home Medications Medication Instructions Recorded Confirmed Last Taken Ferrous Sulfate [Iron 325 MG] 1 tab PO BID 12/11/18 12/11/18 12/10/18 Previous Rx's Medication Instructions Recorded Last Taken Type Ondansetron [Zofran Odt] 4 mg PO Q8HR PRN #10 tab.rapdis 01/28/19 Unknown Rx Acetaminophen/Codeine [Tylenol 1 tab PO Q6H PRN #12 tab 06/08/19 Unknown Rx /Codeine # 3 tab] Ondansetron [Zofran Odt] 4 mg PO Q8HR PRN #20 tab.rapdis 06/08/19 Unknown Rx Penicillin Vk [Veetids TAB] 500 mg PO BID 10 Days #40 tablet 06/05/20 Unknown Rx Erythromycin [Erythromycin Ophth 1 strip OU QID 10 Days #1 tube 12/20/20 Unknown Rx Oint] HYDROcodone/APAP 7.5-325 [[place] 1 each PO Q8HR PRN #12 tablet 12/20/20 Unknown Rx 7.5/325] Ibuprofen [Motrin 800 MG tab] 800 mg PO Q8HR PRN #30 tablet 12/20/20 Unknown Rx Capsaicin 0.075% [Zostrix Hp 1 applicatio TP TID #1 tube 09/15/21 Unknown Rx 0.075%] Naproxen [Naprosyn TAB] 500 mg PO BID PRN #30 tablet 09/15/21 Unknown Rx Allergies Allergy/AdvReac Type Severity Reaction Status Date / Time No Known Allergies Allergy Verified 12/11/18 01:57 ED Review of Systems Constitutional: denies: chills, fever, malaise Cardiovascular: denies: chest pain Gastrointestinal: abdominal pain, nausea. denies: vomiting, diarrhea, constipation Genitourinary: abnormal menses. denies: urgency, dysuria, frequency, hematuria, discharge Musculoskeletal: denies: back pain ED Past Medical Hx - Past Medical History Hx Hypertension: Yes (gestational w/first ) Hx Congestive Heart Failure: No Hx Diabetes: No Hx Deep Vein Thrombosis: No Hx Renal Disease: No Hx Sickle Cell Disease: No Hx Seizures: No Hx Asthma: No Hx COPD: No Hx HIV: No Additional medical history: induced for possible preeclampsia with last - Surgical History Past Surgical History?: Yes Additional Surgical History: - Social History Smoking Status: Never Smoker - Medications Home Medications: Home Medications Medication Instructions Recorded Confirmed Last Taken Type Ferrous Sulfate [Iron 325 MG] 1 tab PO BID 12/11/18 12/11/18 12/10/18 History Ondansetron [Zofran Odt] 4 mg PO Q8HR PRN #10 tab.rapdis 01/28/19 Unknown Rx Acetaminophen/Codeine [Tylenol 1 tab PO Q6H PRN #12 tab 06/08/19 Unknown Rx /Codeine # 3 tab] Ondansetron [Zofran Odt] 4 mg PO Q8HR PRN #20 tab.rapdis 06/08/19 Unknown Rx Penicillin Vk [Veetids TAB] 500 mg PO BID 10 Days #40 tablet 06/05/20 Unknown Rx Erythromycin [Erythromycin Ophth 1 strip OU QID 10 Days #1 tube 12/20/20 Unknown Rx Oint] HYDROcodone/APAP 7.5-325 [[place] 1 each PO Q8HR PRN #12 tablet 12/20/20 Unknown Rx 7.5/325] Ibuprofen [Motrin 800 MG tab] 800 mg PO Q8HR PRN #30 tablet 12/20/20 Unknown Rx Capsaicin 0.075% [Zostrix Hp 1 applicatio TP TID #1 tube 09/15/21 Unknown Rx 0.075%] Naproxen [Naprosyn TAB] 500 mg PO BID PRN #30 tablet 09/15/21 Unknown Rx ED Physical Exam - General Limitations: No Limitations General appearance: alert, in no apparent distress - Head Head exam: Present: atraumatic, normocephalic - Eye Eye exam: Present: normal appearance - Neck Neck exam: Present: normal inspection - Respiratory Respiratory exam: Present: normal lung sounds bilaterally. Absent: respiratory distress - Cardiovascular Cardiovascular Exam: Present: regular rate, normal rhythm - GI/Abdominal GI/Abdominal exam: Present: soft, tenderness (Mid, suprapubic, and left lower quadrant tenderness to palpation noted on exam), normal bowel sounds. Absent: rigid - Neurological Exam Neurological exam: Present: alert, oriented X3 - Psychiatric Psychiatric exam: Present: normal affect, normal mood - Skin Skin exam: Present: warm, dry, intact, normal color. Absent: rash ED Medical Decision Making - Lab Data Result diagrams: 09/14/21 19:04 09/14/21 19:04 - Radiology Data Radiology results: report reviewed ULTRASOUND OBSTETRIC REASON FOR EXAM: vaginal bleeding TECHNIQUE: Transabdominal and transvaginal ultrasound was performed to evaluate a first trimester . COMPARISON: None available. FINDINGS: Uterus measures 8.3 cm. Endometrial thickness measures 0.6 cm. No myometrial mass. No IUP is detected. The right ovary demonstrates a normal sonographic appearance. The left ovary demonstrates a normal sonographic appearance. Cul-de-sac: There is no free fluid. IMPRESSION: No IUP detected. of unknown location. Findings could reflect an early intrauterine , occult ectopic , or recent spontaneous . In a hemodynamically stable patient, recommend follow-up with pelvic ultrasound in 7-10 days. - Medical Decision Making 6-year-old -Romanian female patient presents with complaints of vaginal bleeding in starting yesterday. Patient states 2 days ago while at work she was hit in the stomach with a forklift arm. She states she had abdomin al pain that worsened yesterday along with vaginal bleeding. Patient states she is bleeding very heavily and has gone through about 20 pads today. She denies any dizziness. She rates her abdominal pain is 8/10 in severity. No other past medical history per patient. She is G3, . Patient states her first [facility] appointment was scheduled for 09/22/2021 ED Disposition Clinical Impression: Abdominal wall strain Qualifiers: Encounter type: initial encounter Qualified Code(s): S39.011A - Strain of m uscle, fascia and tendon of abdomen, initial encounter Abdominal pain Qualifiers: Abdominal location: generalized Qualified Code(s): R10.84 - Generalized abdominal pain Disposition: 01 HOME / SELF CARE / HOMELESS Condition: Stable Instructions: Abdominal Pain (ED), Adductor Muscle Strain, Abdominal Pain, Adult Additional Instructions: Take medications as prescribed, use moist heat therapy, follow-up with your doctor in 2 to 3 days. Return to emergency department should symptoms worsen. Prescriptions: Naproxen [Naprosyn TAB] 500 mg PO BID PRN #30 tablet PRN Reason: pain Capsaicin 0.075% [Zostrix Hp 0.075%] 1 applicatio TP TID #1 tube Referrals: [facility] [Primary Care Provider] - 3-5 Days Forms: Work/School Release Form(ED) <GINETTE MOSLEY - Last Filed: 09/15/21 01:23> ED Review of Systems ROS: Stated complaint: POSS MISCARRIAGE Other details as noted in HPI ED Course Vital Signs 09/14/21 09/14/21 18:39 22:38 Temperature 99.0 F Pulse Rate 75 Respiratory 18 18 Rate Blood Pressure 117/62 O2 Sat by Pulse 100 Oximetry ED Medical Decision Making - Lab Data Result diagrams: 09/14/21 19:04 09/14/21 19:04 - Radiology Data ULTRASOUND OBSTETRIC REASON FOR EXAM: vaginal bleeding TECHNIQUE: Transabdominal and transvaginal ultrasound was performed to evaluate a first trimester . COMPARISON: None available. FINDINGS: Uterus measures 8.3 cm. Endometrial thickness measures 0.6 cm. No myometrial mass. No IUP is detected. The right ovary demonstrates a normal sonographic appearance. The left ovary demonstrates a normal sonographic appearance. Cul-de-sac: There is no free fluid. IMPRESSION: No IUP detected. of unknown location. Findings could reflect an early intrauterine , occult ectopic , or recent spontaneous . In a hemodynamically stable patient, recommend follow-up with pelvic ultrasound in 7-10 days. Signer Name: Joe Kitchen MD Signed: 09/14/2021 8:18 PM Workstation Name: [id number] Transcribed By: HEATHER Dictated By: JOE KITCHEN MD Electronically Authenticated By: JOE KITCHEN MD Signed Date/Time: 09/14/212017 CT ABDOMEN AND PELVIS WITH CONTRAST INDICATION / CLINICAL INFORMATION: mid/lower pain, heavy vag bleed after blunt trauma. TECHNIQUE: Axial CT images were obtained through the abdomen and pelvis after Omnipaque 300, 100 [address] scans at this location are performed using CT dose reduction for ALARA by means of automated exposure control. COMPARISON: CT abdomen and pelvis 06/08/2019 FINDINGS: LOWER CHEST: No significant abnormality. LIVER: No significant abnormality. GALLBLADDER: No significant abnormality. BILE DUCTS: No significant abnormality. PANCREAS: No significant abnormality. SPLEEN: No significant abnormality. ADRENALS: No significant abnormality. RIGHT KIDNEY / URETER: No significant abnormality. LEFT KIDNEY / URETER: No significant abnormality. STOMACH / SMALL BOWEL: No significant abnormality. COLON: No significant abnormality. APPENDIX: No significant abnormality. PERITONEUM: No free fluid. No free air. No fluid collection. LYMPH NODES: No significant adenopathy. VASCULAR STRUCTURES: No significant abnormality. URINARY BLADDER: No significant abnormality. REPRODUCTIVE ORGANS: No significant abnormality. ADDITIONAL FINDINGS: None. SKELETAL SYSTEM: No significant abnormality. IMPRESSION: Negative for obstruction or localized inflammation. Signer Name: Héctor Vogt MD Signed: 09/14/2021 11:52 PM Workstation Name: [id number] Transcribed By: ES Dictated By: Héctor Vogt MD Electronically Authenticated By: Héctor Vogt MD Signed Date/Time: 09/14/21 0610 - Medical Decision Making CT normal no abnormalities no obstruction Critical care attestation.: If time is entered above; I have spent that time in minutes in the direct care of this critically ill patient, excluding procedure time. ED Disposition Is pt being admited?: No Does the pt Need Aspirin: No Time of Disposition: 01:23
[2021-09-14 19:45] LABS: Basophils % (Auto) 0.1 % (0.0-1.8); Eosinophils % (Auto) 0.3 % (0.0-4.3); Hematocrit 35.6 % (30.3-42.9); Hemoglobin 11.5 gm/dl (10.1-14.3); Lymphocytes # (Auto) 1.6 K/mm3 (1.2-5.4); Lymphocytes % (Auto) 17.1 % (13.4-35.0); Mean Corpuscular HGB Conc 32 % (30-34); Mean Corpuscular Volume 91 fl (79-97); Monocytes # (Auto) 0.5 K/mm3 (0.0-0.8); Monocytes % (Auto) 5.6 % (0.0-7.3); Platelet Count 238 K/mm3 (140-440); Red Blood Count 3.93 M/mm3 (3.65-5.03); Red Cell Distribution Width 14.4 % (13.2-15.2)
[2021-09-14 19:47] LABS: Alanine Aminotransferase 11 units/L (7-56); Albumin 4.2 g/dL (3.9-5); Blood Urea Nitrogen 11 mg/dL (7-17); Calcium 8.9 mg/dL (8.4-10.2); Hemolysis Index 32
[2021-09-14 20:14] LABS: BUN/Creatinine Ratio 18
--- NOTE | 2021-09-14 20:23 | Ultrasound Report ---
ULTRASOUND OBSTETRIC REASON FOR EXAM: vaginal bleeding TECHNIQUE: Transabdominal and transvaginal ultrasound was performed to evaluate a first trimester pre gnancy. COMPARISON: None available. FINDINGS: Uterus measures 8.3 cm. Endometrial thickness measures 0.6 cm. No myometrial mass. No IUP is detected . The right ovary demonstrates a normal sonographic appearance. The left ovary demonstrates a normal sonographic appearance. Cul-de-sac: There is no free fluid. IMPRESSION: No IUP detected. of unknown location. Findings could reflect an early intrauterine pregnanc y, occult ectopic , or recent spontaneous . In a hemodynamically stable patient, rec ommend follow-up with pelvic ultrasound in 7-10 days. Signer Name: Stevie Kitchen MD Signed: 09/14/2021 8:18 PM Workstation Name: [id number]
[2021-09-14] MEDS ORDERED: MORPHINE 4 MG/1 ML INJ IV ONE (21:38)
[2021-09-14] MEDS ORDERED: SODIUM CHLORIDE 0.9% 1000 ML 1,000 ML IV ONE (21:38)
[2021-09-14] MEDS ORDERED: ONDANSETRON 4 MG/2 ML INJ IV ONE (21:38)
--- NOTE | 2021-09-14 23:57 | Cat Scan Report ---
CT ABDOMEN AND PELVIS WITH CONTRAST INDICATION / CLINICAL INFORMATION: mid/lower pain, heavy vag bleed after blunt trauma. TECHNIQUE: Axial CT images were obtained through the abdomen and pelvis after Omnipaque 300, 100 cc I V contrast. All CT scans at this location are performed using CT dose reduction for ALARA by means o f automated exposure control. COMPARISON: CT abdomen and pelvis 06/08/2019 FINDINGS: LOWER CHEST: No significant abnormality. LIVER: No significant abnormality. GALLBLADDER: No significant abnormality. BILE DUCTS: No significant abnormality. PANCREAS: No significant abnormality. SPLEEN: No significant abnormality. ADRENALS: No significant abnormality. RIGHT KIDNEY / URETER: No significant abnormality. LEFT KIDNEY / URETER: No significant abnormality. STOMACH / SMALL BOWEL: No significant abnormality. COLON: No significant abnormality. APPENDIX: No significant abnormality. PERITONEUM: No free fluid. No free air. No fluid collection. LYMPH NODES: No significant adenopathy. VASCULAR STRUCTURES: No significant abnormality. URINARY BLADDER: No significant abnormality. REPRODUCTIVE ORGANS: No significant abnormality. ADDITIONAL FINDINGS: None. SKELETAL SYSTEM: No significant abnormality. IMPRESSION: Negative for obstruction or localized inflammation. Signer Name: Héctor Vogt MD Signed: 09/14/2021 11:52 PM Workstation Name: [id number]
[2021-09-15 02:19] VITALS: BP 128/78
== END 2021-09-15 02:20 | disposition home or self-care (01) ==
LOC: ED 18:07
DX: O26.891 Other specified pregnancy related conditions, first trimester (principal); S39.011A Strain of muscle, fascia and tendon of abdomen, initial encounter; R10.84 Generalized abdominal pain; Z3A.00 Weeks of gestation of pregnancy not specified; X58.XXXA Exposure to other specified factors, initial encounter; Y93.89 Activity, other specified; Y92.89 Other specified places as the place of occurrence of the external cause; Y99.8 Other external cause status
CPT/HCPCS: 36415; 74177; 76801; 76817; 80053; 83690; 84702; 85025; 86900; 86901; 96361; 96374; 96375; 99284; J2270; J2405; J7030; Q9967; Q0162

== ENCOUNTER 2021-12-18 15:31 | Emergency (ER) | payer MEDICAID ==
[2021-12-18] MEDS ORDERED: KETOROLAC 10 MG TAB PO ONE (17:09)
--- NOTE | 2021-12-18 17:10 | Emergency Department Report ---
ED Headache HPI - General Chief Complaint: Headache Stated Complaint: MIGRAINE Time Seen by Provider: 12/18/21 16:34 Source: patient Exam Limitations: no limitations - History of Present Illness Initial Comments: 26-year-old female presents to the ER today with complaints of occipital headache. Patient states that she has had these headaches in the past. She assumed that they were migraines but she is never been officially evaluated by a neurologist or her PCP for her headaches. She states that the headaches flareup on a 3 days ago. She states that she has been taking Tylenol without much relief. She reports associated photosensitivity. She denies any nausea, vomiting, neck pain, fever, chills, vision changes, speech changes, focal weakness or any additional symptoms. Timing/Duration: other (3 days) Head Injury Location: occipital Allergies/Adverse Reactions: Allergies No Known Allergies Allergy (Verified 12/11/18 01:57) Home Medications: Ambulatory Orders Ferrous Sulfate [Iron 325 MG] 1 tab PO BID 12/11/18 Ondansetron [Zofran Odt] 4 mg PO Q8HR PRN #10 tab.rapdis 01/28/19 Acetaminophen/Codeine [Tylenol /Codeine # 3 tab] 1 tab PO Q6H PRN #12 tab 06/08/19 Ondansetron [Zofran Odt] 4 mg PO Q8HR PRN #20 tab.rapdis 06/08/19 Penicillin Vk [Veetids TAB] 500 mg PO BID 10 Days #40 tablet 06/05/20 Erythromycin [Erythromycin Ophth Oint] 1 strip OU QID 10 Days #1 tube 12/20/20 HYDROcodone/APAP 7.5-325 [[place] 7.5/325] 1 each PO Q8HR PRN #12 tablet 12/20/20 Ibuprofen [Motrin 800 MG tab] 800 mg PO Q8HR PRN #30 tablet 12/20/20 Capsaicin 0.075% [Zostrix Hp 0.075%] 1 applicatio TP TID #1 tube 09/15/21 Naproxen [Naprosyn TAB] 500 mg PO BID PRN #30 tablet 09/15/21 Butalb/Acetamin/Caff 50-325-40 [Fioricet 50-325-40] 1 tab PO Q6HR PRN #12 tab 12/18/21 ED Review of Systems ROS: Stated complaint: MIGRAINE Other details as noted in HPI Comment: All other systems reviewed and negative Constitutional: denies: chills, fever Eyes: denies: eye pain, eye discharge, vision change ENT: denies: ear pain, throat pain Respiratory: denies: cough, shortness of breath, SOB with exertion, SOB at rest, wheezing Cardiovascular: denies: chest pain, palpitations, edema, syncope, paroxysmal nocturnal dyspnea Gastrointestinal: denies: abdominal pain, nausea, vomiting, diarrhea, constipation, hematemesis Genitourinary: denies: urgency, dysuria, frequency, hematuria, discharge, abnormal menses, dyspareunia Musculoskeletal: denies: back pain, joint swelling, arthralgia, myalgia Skin: denies: rash, lesions Neurological: headache. denies: numbness, paresthesias, confusion, abnormal gait, vertigo Psychiatric: denies: anxiety, depression, auditory hallucinations, visual hallucinations, homicidal thoughts Hematological/Lymphatic: denies: easy bleeding, easy bruising ED Past Medical Hx - Past Medical History Hx Hypertension: Yes (gestational w/first ) Hx Congestive Heart Failure: No Hx Diabetes: No Hx Deep Vein Thrombosis: No Hx Renal Disease: No Hx Sickle Cell Disease: No Hx Seizures: No Hx Asthma: No Hx COPD: No Hx HIV: No Additional medical history: induced for possible preeclampsia with last - Surgical History Additional Surgical History: - Social History Smoking Status: Never Smoker Substance Use Type: None - Medications Home Medications: Home Medications Medication Instructions Recorded Confirmed Last Taken Type Ferrous Sulfate [Iron 325 MG] 1 tab PO BID 12/11/18 12/11/18 12/10/18 History Ondansetron [Zofran Odt] 4 mg PO Q8HR PRN #10 tab.rapdis 01/28/19 Unknown Rx Acetaminophen/Codeine [Tylenol 1 tab PO Q6H PRN #12 tab 06/08/19 Unknown Rx /Codeine # 3 tab] Ondansetron [Zofran Odt] 4 mg PO Q8HR PRN #20 tab.rapdis 06/08/19 Unknown Rx Penicillin Vk [Veetids TAB] 500 mg PO BID 10 Days #40 tablet 06/05/20 Unknown Rx Erythromycin [Erythromycin Ophth 1 strip OU QID 10 Days #1 tube 12/20/20 Unknown Rx Oint] HYDROcodone/APAP 7.5-325 [[place] 1 each PO Q8HR PRN #12 tablet 12/20/20 Unknown Rx 7.5/325] Ibuprofen [Motrin 800 MG tab] 800 mg PO Q8HR PRN #30 tablet 12/20/20 Unknown Rx Capsaicin 0.075% [Zostrix Hp 1 applicatio TP TID #1 tube 09/15/21 Unknown Rx 0.075%] Naproxen [Naprosyn TAB] 500 mg PO BID PRN #30 tablet 09/15/21 Unknown Rx Butalb/Acetamin/Caff 50-325-40 1 tab PO Q6HR PRN #12 tab 12/18/21 Unknown Rx [Fioricet 50-325-40] ED Physical Exam - General Limitations: No Limitations General appearance: alert, in no apparent distress - Head Head exam: Present: atraumatic, normocephalic, normal inspection - Eye Eye exam: Present: normal appearance, PERRL, EOMI Pupils: Present: normal accommodation - ENT ENT exam: Present: normal exam, mucous membranes moist - Neck Neck exam: Present: normal inspection, full ROM. Absent: meningismus - Respiratory Respiratory exam: Present: normal lung sounds bilaterally. Absent: respiratory distress - Cardiovascular Cardiovascular Exam: Present: regular rate, normal rhythm, normal heart sounds - Neurological Exam Neurological exam: Present: alert, oriented X3, CN II-XII intact, normal gait - Psychiatric Psychiatric exam: Present: normal affect, normal mood ED Course Vital Signs 12/18/21 16:20 Temperature 98.3 F Pulse Rate 76 Respiratory 18 Rate Blood Pressure 104/63 [Right] O2 Sat by Pulse 99 Oximetry ED Medical Decision Making - Medical Decision Making The patient presented to the emergency department with a headache. The patient is resting comfortably and, is alert, talkative, interactive and in no distress. The patient appears well and is able to tolerate p.o. fluids. The patient is neurologically intact, has a normal mental status, and is ambulatory in the ER. The history, exam, diagnostic testing and the patient's current condition does not suggest meningitis, stroke, sepsis, subarachnoid hemorrhage, intracranial bleeding, encephalitis, or other significant pathology to warrant further testing, continued ED treatment, admission, neurological consultation or other specialist evaluation at this point. The vital signs have been stable. The patient's condition is stable and appropriate for discharge. The patient will pursue further outpatient evaluation with the primary care physician or other designated or consulting physician as indicated in the discharge instruction. Critical care attestation.: If time is entered above; I have spent that time in minutes in the direct care of this critically ill patient, excluding procedure time. ED Disposition Clinical Impression: Headache Disposition: 01 HOME / SELF CARE / HOMELESS Is pt being admited?: No Does the pt Need Aspirin: No Condition: Stable Instructions: Occipital Neuralgia Additional Instructions: TAke the fiorcet as prescribed for your headache. Recommend that you follow-up with your primary care doctor and or neurologist for further evaluation of your headache. Return to the ER if your symptoms changes or worsens in any way. Prescriptions: Butalb/Acetamin/Caff 50-325-40 [Fioricet 50-325-40] 1 tab PO Q6HR PRN #12 tab PRN Reason: Headache Referrals: YULY MACKAY MD [Staff Physician] - 3-5 Days [facility] [Provider Group] - 3-5 Days Forms: Work/School Release Form(ED) Time of Disposition: 18:02
[2021-12-18 19:27] VITALS: BP 121/78
== END 2021-12-18 19:26 | disposition home or self-care (01) ==
LOC: ED 15:31
DX: R51.9 Headache, unspecified (principal); I10 Essential (primary) hypertension; Z98.890 Other specified postprocedural states
CPT/HCPCS: 99282